=== PATIENT | female | born 1995 | race Two or more races ===

== ENCOUNTER 2019-06-09 12:46 | Emergency (ER) | payer SELFPAY ==
[~2019-06-09] VITALS: Ht 157.5 cm; Wt 122.5 kg
[2019-06-09 12:59] VITALS: BP 136/83
== END 2019-06-09 16:04 | disposition home or self-care (01) ==
LOC: ER 12:52
DX: H60.391 Other infective otitis externa, right ear (principal)

== ENCOUNTER 2019-06-13 10:22 | Emergency (ER) | payer MEDICAID, OTHER ==
[~2019-06-13] VITALS: Ht 157.5 cm; Wt 117.9 kg
[2019-06-13 12:27] VITALS: BP 125/75
[2019-06-13] MEDS ORDERED: cefTRIAXone SOD 1,000 MG VL IM ONE (13:30)
[2019-06-13] MEDS ORDERED: LIDOCAINE 1% HCL (LOCAL ANESTH.) INJ 20ML MDV IJ ONE (13:30)
== END 2019-06-13 14:27 | disposition home or self-care (01) ==
LOC: ER 10:22
DX: H60.01 Abscess of right external ear (principal); R51 Headache; H93.8X1 Other specified disorders of right ear
CPT/HCPCS: 69000; 96372; 99284; J0696; J2001; 10060